=== PATIENT | male | born 1975 | race Caucasian/White ===

== ENCOUNTER 2016-12-26 22:10 | Emergency (ER) | payer OTHER ==
[2016-12-26 22:44] LABS: % IMMATURE GRANULYOCYTES 0.5 % (0.0-1.1); ABSOLUTE IMMATURE GRANULOCYTES 0.03 10^3/uL (0.00-0.10); ADD DIFF? NO; ADD MORPH? NO; ADD SCAN? NO; ATYPICAL LYMPHOCYTE FLAG 10 (0-99); FRAGMENT RBC FLAG 0 (0-99); HEMATOCRIT 47.2 % (40.0-51.0); HEMOGLOBIN 16.5 g/dL (13.7-17.5); LEFT SHIFT FLG 0 (0-99); LIPEMIA HEMOLYSIS FLAG 90 (0-99); MEAN CELL HEMOGLOBIN 31.8 pg (27.9-34.1); MEAN CELL VOLUME 90.9 fL (81.5-99.8); MEAN PLATELET VOLUME 9.3 fL (8.7-11.7); PLATELET CLUMPS FLAG 10 (0-99); PLATELET COUNT 251 10^3/uL (150-400); RED BLOOD CELL COUNT 5.19 10^6/uL (4.40-6.38); RED CELL DISTRIBUTION WIDTH 12.9 % (11.5-15.2)
[2016-12-26 22:52] LABS: ANION GAP 16 mEq/L (8-16); CARBON DIOXIDE 20 mEq/l (22-31); CHLORIDE 106 mEq/L (97-110); ETHANOL SERUM 211 mg/dL (0-10); GLOMERULAR FILTRATION RATE > 60; GLUCOSE 98 mg/dL (70-100); POTASSIUM 4.1 mEq/L (3.5-5.2); SALICYLATE < 1.0 mg/dL (2.0-20.0); SODIUM 142 mEq/L (134-144)
[2016-12-26] MEDS: LORazepam 1 MG TAB PO ONE ×3 (22:55→22:56)
[2016-12-26] MEDS ORDERED: HALOPERIDOL LACT 5 MG/ML INJ ONE (22:58)
[2016-12-26] MEDS ORDERED: HALOPERIDOL LACT 5 MG/ML INJ IM ONE (23:02)
--- NOTE | 2016-12-27 00:21 | EDPHY ---
H & P Stated Complaint: si/hi, per ems pt laying in road trying to be run over, si/hi comments - Medical/Surgical History Hx Asthma: No Hx Chronic Respiratory Disease: No Hx Diabetes: No Hx Cardiac Disease: No Hx Renal Disease: No Hx Cirrhosis: No Hx HIV/AIDS: No Hx Splenectomy or Spleen Trauma: No Other PMH: ptsd, bipolar, depression, fibromyalgia, ocd, insomnia, osteoarthritis HPI/ROS: Chief complaint: Suicidal and homicidal ideation, on mental health hold History of present illness: 41-year-old male presents to the emergency depart with EMS and police for suicidal and homicidal ideation. Patient was apparently found lying in the street. On contact with him he stated he wanted to kill himself and other people. He was placed on a mental health hold. On my evaluation patient is agitated. He does state he wants to kill himself and other people. No specific person listed. He denies illness or injury. No other complaints. Review of systems: Patient will not elaborate on further questions asked (Lazaro Garcia) - Physical Exam Exam: General Appearance: Alert. Eyes: Pupils equal and round no pallor or injection. ENT, Mouth: Mucous membranes moist. Respiratory: There are no retractions, lungs are clear to auscultation. Cardiovascular: Regular rate and rhythm. Gastrointestinal: Abdomen is soft and non tender, no masses, bowel sounds normal. Neurological: Alert. Strength and sensation intact and symmetrical. Skin: Warm and dry, no rashes. Musculoskeletal: Neck is supple non tender. Extremities are symmetrical, full range of motion. Psychiatric: Patient is very agitated. (Lazaro Garcia) Constitutional: Initial Vital Signs Temperature (C) 37.2 C 12/26/16 22:24 Heart Rate 112 H 12/26/16 22:24 Respiratory Rate 18 12/26/16 22:24 Blood Pressure 141/105 H 12/26/16 22:24 O2 Sat (%) 94 12/26/16 22:24 O2 Delivery Mode Room Air Allergies/Adverse Reactions: No Known Allergies Allergy (Unverified 12/26/16 22:27) Home Medications: Medication Instructions Recorded Buspar (*) 12/26/16 Flexeril 12/26/16 Gabapentin 12/26/16 Seroquel 12/26/16 Medical Decision Making ED Course/Re-evaluation: Patient discussed with my secondary supervising physician Dr. Linda Muniz. Patient presents to the emergency department on a mental health hold. On my evaluation patient is admitting to suicidal and homicidal ideation but does not further elaborate. Laboratory studies and urine tox screen are obtained. He is intoxicated. He will need to sober up before he can be evaluated. Patient has become extremely agitated. Despite attempts to calm him down by talking to him he become more agitated and aggressive. He has been given Ativan and Haldol. Care of patient is turned over to my attending physician Dr. hannah the end of shift. (Lazaro Garcia) 7:00 a.m.- The patient has been stable throughout my shift and has been sleeping. He is currently awaiting evaluation pending his sobriety. Alcohol level was 211 earlier. The case has been signed out to the oncoming provider Dr. Horowitz. (Linda Muniz) 10:40 a.m.-this patient was seen by mental health and felt appropriate for outpatient treatment of depression. He denies suicidal or homicidal ideation. I agree with this assessment. (Deja Horowitz) Differential Diagnosis: Included but not limited to depression, bipolar, schizophrenia, substance abuse (Lazaro Garcia) - Data Points Laboratory Results: Laboratory Results 12/26/16 22:27 12/26/16 22:27 12/26/16 12/26/16 12/26/16 22:55 22:27 22:27 WBC 6.42 10^3/uL 10^3/uL (3.80-9.50) RBC 5.19 10^6/uL 10^6/uL (4.40-6.38) Hgb 16.5 g/dL g/dL (13.7-17.5) Hct 47.2 % % (40.0-51.0) MCV 90.9 fL fL (81.5-99.8) MCH 31.8 pg pg (27.9-34.1) MCHC 35.0 g/dL g/dL (32.4-36.7) RDW 12.9 % % (11.5-15.2) Plt Count 251 10^3/uL 10^3/uL (150-400) MPV 9.3 fL fL (8.7-11.7) Neut % (Auto) 65.0 % % (39.3-74.2) Lymph % (Auto) 21.7 % % (15.0-45.0) [place] % (Auto) 8.3 % % (4.5-13.0) Eos % (Auto) 3.6 % % (0.6-7.6) Baso % (Auto) 0.9 % % (0.3-1.7) Nucleat RBC Rel Count 0.0 % % (0.0-0.2) Absolute Neuts (auto) 4.18 10^3/uL 10^3/uL (1.70-6.50) Absolute Lymphs (auto) 1.39 10^3/uL 10^3/uL (1.00-3.00) Absolute Monos (auto) 0.53 10^3/uL 10^3/uL (0.30-0.80) Absolute Eos (auto) 0.23 10^3/uL 10^3/uL (0.03-0.40) Absolute Basos (auto) 0.06 10^3/uL 10^3/uL (0.02-0.10) Absolute Nucleated RBC 0.00 10^3/uL 10^3/uL (0-0.01) Immature Gran % 0.5 % % (0.0-1.1) Immature Gran # 0.03 10^3/uL 10^3/uL (0.00-0.10) Sodium 142 mEq/L mEq/L (134-144) Potassium 4.1 mEq/L mEq/L (3.5-5.2) Chloride 106 mEq/L mEq/L (97-110) Carbon Dioxide 20 mEq/l L mEq/l (22-31) Anion Gap 16 mEq/L mEq/L (8-16) BUN 13 mg/dL mg/dL (7-23) Creatinine 1.0 mg/dL mg/dL (0.7-1.3) Estimated GFR > 60 Glucose 98 mg/dL mg/dL (70-100) Calcium 10.0 mg/dL mg/dL (8.5-10.4) Salicylates < 1.0 mg/dL L mg/dL (2.0-20.0) Urine Opiates Screen NEGATIVE (NEGATIVE) Acetaminophen < 10 mcg/mL L mcg/mL (10.0-30.0) Urine Barbiturates NEGATIVE (NEGATIVE) Ur Phencyclidine Scrn NEGATIVE (NEGATIVE) Ur Amphetamine Screen NEGATIVE (NEGATIVE) U Benzodiazepines Scrn NEGATIVE (NEGATIVE) Urine Cocaine Screen NEGATIVE (NEGATIVE) U Marijuana (THC) Screen NON-NEGATIVE H (NEGATIVE) Ethyl Alcohol 211 mg/dL H mg/dL (0-10) Medications Given: Discontinued Medications Haloperidol Lactate (Haldol Injection) 10 mg IM EDNOW ONE Stop: 12/26/16 23:03 Last Admin: 12/26/16 23:06 Dose: 10 mg Lorazepam (Ativan) 1 mg PO EDNOW ONE Stop: 12/26/16 22:41 Last Admin: 12/26/16 22:56 Dose: 1 mg Lorazepam (Ativan) 1 mg PO EDNOW ONE Stop: 12/26/16 22:43 Last Admin: 12/27/16 07:48 Dose: Not Given Departure - Departure Disposition: Home, Routine, Self-Care Clinical Impression: Suicidal ideation, Homicidal ideation Condition: Good Instructions: Suicide Prevention for Adults (ED) Referrals: [facility] [Outside] - As per Instructions (Go directly to P.)
[2016-12-27 02:43] VITALS: RESP 16
[2016-12-27] MEDS: LORazepam 1 MG TAB PO ONE (07:48)
[2016-12-27 11:18] VITALS: BP 118/74; PULSE 80; TEMP 98.4; O2SAT 94
== END 2016-12-27 11:17 | disposition home or self-care (01) ==
DX: R45.851 Suicidal ideations (principal); R45.850 Homicidal ideations
CPT/HCPCS: 80305; G0480